=== PATIENT | male | born 1970 | race Two or more races ===

== ENCOUNTER 2016-07-10 21:47 | Emergency (ER) | payer BC ==
[2016-07-10 22:00] VITALS: RESP 16
--- NOTE | 2016-07-10 22:26 | EDPHY ---
H & P Time Seen by Provider: 07/10/16 22:08 HPI/ROS: HPI Skiing accident. Right knee injury, lower back injury. 45-year-old male by private vehicle. This patient reports that he was skiing today. He reports that he came off of a small hill and ran awkwardly in to the trach of a snow groaning machine. He reports that as he went to ground he twisted his left lower back and his right knee. He complains of pain to the left lateral lumbar area and pain to the medial aspect of the right knee. He did not hit his head. There was no loss of consciousness. He was wearing a helmet. No neck pain. He denies any numbness or weakness in his extremities. No other complaint. ROS: Constitutional: No fever, no chills. No weakness. Eyes: No discharge. No changes in vision. ENT: No sore throat. No nasal congestion or rhinorrhea. Respiratory: No cough. No shortness of breath. Cardiac: No chest pain, no palpitations. Gastrointestinal: No abdominal pain, no vomiting, no diarrhea. Genitourinary: No hematuria. No dysuria or increased frequency with urination. Musculoskeletal: As above. Denies other extremity pain. Skin: No rashes. No lacerations or abrasions. Neurological: No headache. No focal weakness or altered sensation. Past medical history: Burkitt's lymphoma, left knee MCL repair, left sided Achilles tendon repair. Social history: Here by himself. Nonsmoker. No alcohol Physical Exam: General Appearance: Alert, no distress. This patient is responding to questions appropriately and in full sentences. This patient appears well- hydrated and well-nourished. Head: Normocephalic atraumatic. Face: Facial bones are stable on palpation. Eyes: Pupils equal and round and reactive to light, no pallor or injection. No lid erythema or edema. ENT, Mouth: Mucous membranes moist. Dentition is intact. No malocclusion of the jaw. No tongue lacerations or abrasions. Pharynx is clear. The bilateral nasal canals are clear. No septal hematoma. Respiratory: There are no retractions, lungs are clear to auscultation with good air movement bilaterally. Chest wall is stable to AP and lateral palpation. Cardiovascular: Regular rate and rhythm. No murmur. Gastrointestinal: Abdomen is soft and nontender, no masses, bowel sounds normal. Neurological: Motor sensory function is intact. Cranial nerves are normal. Cerebellar function intact. Skin: Warm and dry, no rashes. No lacerations, abrasions or contusions. Musculoskeletal: Neck is supple and nontender. The trachea is midline. No midline cervical, thoracic, lumbar or sacral tenderness on palpation. No flank tenderness on palpation. Examination of the lumbar spine is significant for some mild tenderness on palpation on the left paraspinal aspect L4-L5 level. No associated soft tissue changes. No ecchymosis, no edema, no warmth, no erythema. He has a negative same side and cross side straight leg raise test. He is neurologically intact in all myotomes in dermatomes of the bilateral lower extremities. Extremities are symmetrical, full range of motion. Right knee is significant for a suprapatellar effusion. He does have some tenderness over the medial joint line. No associated ecchymosis, swelling, erythema, warmth. The right knee is stable to anterior and posterior drawer testing. Stable to valgus and varus stress testing. The right lower extremity is neurovascularly intact. All joints in the bilateral upper and bilateral lower extremities range without pain or impingement except noted. No tenderness on palpation of the long bones in the bilateral upper and bilateral lower extremities except noted. Psychiatric: No agitation. No depression. Database: EKG: Imaging: LS spine x-ray series: Negative for fracture, subluxation, dislocation. Interpreted by me. Right knee x-ray series: Negative for fracture, subluxation, dislocation. Interpreted by me. Procedures: Emergency department course: Patient declines pain medication in the emergency department. He was sent for appropriate imaging. Patient re-evaluated at 10:45 p.m., results of his x-rays were discussed with him. He feels comfortable going home and I feel he is safe for discharge. He will be placed in a right knee immobilizer brace. Weight- bearing as tolerated. Plan will be to follow up with Orthopedics for re- evaluation in 2-3 days. Ibuprofen and narcotic pain medication dosing discussed with him. Return to emergency department precautions were thoroughly reviewed. Follow-up discussed. All of his questions were answered. He was discharged in good condition. Differential Diagnosis: The differential diagnosis on this patient includes but is not limited to right knee medial collateral ligament sprain, left sacroiliac sprain. Traumatic spinal injury, traumatic brain injury, extremity fracture, subluxation, dislocation unlikely. This represents a partial list of diagnoses considered. These considerations are based on history, physical exam, past history, reassessment and diagnostic testing. Smoking Status: Never smoked Constitutional: Initial Vital Signs Temperature (C) 36.7 C 07/10/16 21:57 Heart Rate 67 07/10/16 21:57 Respiratory Rate 16 07/10/16 21:57 Blood Pressure 151/93 H 07/10/16 21:57 O2 Sat (%) 95 07/10/16 21:57 O2 Delivery Mode Room Air Allergies/Adverse Reactions: No Known Allergies Allergy (Unverified 07/10/16 21:57) Home Medications: Medication Instructions Recorded NK [No Known Home Meds] 07/10/16 Medical Decision Making - Data Points Laboratory Results: 07/10/16 22:30 Urine Color YELLOW Urine Appearance CLEAR Urine pH 6.0 (5.0-7.5) Ur Specific [place] 1.017 (1.002-1.030) Urine Protein NEGATIVE (NEGATIVE) Urine Ketones NEGATIVE (NEGATIVE) Urine Blood 1+ H (NEGATIVE) Urine Nitrate NEGATIVE (NEGATIVE) Urine Bilirubin NEGATIVE (NEGATIVE) Urine Urobilinogen NEGATIVE EU EU (0.2-1.0) Ur Leukocyte Esterase NEGATIVE (NEGATIVE) Urine RBC 1-3 /hpf /hpf (0-3) Urine WBC NONE SEEN /hpf /hpf (0-3) Ur Epithelial Cells NONE SEEN /lpf /lpf (NONE-1+) Urine Glucose NEGATIVE (NEGATIVE) Medications Given: Discontinued Medications Hydrocodone Bitart/Acetaminophen ([place] 5/325mg Prepack#6) 1 btl TAKEHOME EDNOW ONE Stop: 07/10/16 22:29 Last Admin: 07/10/16 22:52 Dose: 1 btl Departure - Departure Disposition: Home, Routine, Self-Care Clinical Impression: Lumbosacral injury, Right knee sprain Condition: Good Instructions: Knee Sprain (ED), Low Back Strain (ED), Knee Immobilizer (ED) Additional Instructions: Read and follow provided instructions. Follow-up with Orthopedics for re-evaluation in 2-3 days for re-evaluation. You will likely require an MRI of your right knee to further evaluate your injury. Weight-bearing to the right knee as tolerated only. Keep brace in place while ambulating. Take medication as prescribed. Ibuprofen dosin mg every 6 hours with meals for the next 3 days only. [place]/Percocet dosin-2 every 4-6 hours for [address] Do not drive on this medication. Return to the emergency department for worsening pain, swelling, discoloration, weakness, loss of control of bowel or bladder or other serious concerns. Referrals: RAJENDRA CASTRO [Other] - As per Instructions Hoda Apodaca MD [Medical Doctor] - As per Instructions
[2016-07-10] MEDS ORDERED: HYDROCOD/APAP 5/325 PREPACK#6 BTL TAKEHOME ONE (22:28)
[2016-07-10 22:43] LABS: COLOR YELLOW; LEUKOCYTE ESTERASE,URINE NEGATIVE (NEGATIVE); NITRITE,URINE NEGATIVE (NEGATIVE)
[2016-07-10 22:48] LABS: WBC,URINE NONE SEEN /hpf (0-3)
[2016-07-11 01:05] VITALS: BP 145/92; PULSE 65; TEMP 97.7; O2SAT 96
== END 2016-07-11 00:05 | disposition home or self-care (01) ==
DX: S39.92XA Unspecified injury of lower back, initial encounter (principal); S83.91XA Sprain of unspecified site of right knee, initial encounter; V00.328A Other snow-ski accident, initial encounter; Y93.23 Activity, snow (alpine) (downhill) skiing, snowboarding, sledding, tobogganing and snow tubing
CPT/HCPCS: L1830

== ENCOUNTER → 2016-07-21 | Outpatient (CLI) | payer BC | LOC: FIMAGING 08:22 | DX: S83.511A Sprain of anterior cruciate ligament of right knee, initial encounter (principal); S83.241A Other tear of medial meniscus, current injury, right knee, initial encounter; S83.411A Sprain of medial collateral ligament of right knee, initial encounter; Y93.23 Activity, snow (alpine) (downhill) skiing, snowboarding, sledding, tobogganing and snow tubing ==